=== PATIENT | male | born 1940 | race Caucasian/White ===

== ENCOUNTER 2018-04-21 11:36 | Inpatient (IN) | payer MEDICAID, OTHER ==
[2018-04-21] MEDS ORDERED: LR 1,000 ML IV ONE (12:24)
[2018-04-21] MEDS ORDERED: ceFAZolin 2 GM/DEXTROSE 100 ML IV ONE (12:24)
[2018-04-21] MEDS ORDERED: LIDOCAINE 1% 2 ML INJ ID PRN (12:24)
[2018-04-21] MEDS ORDERED: PHENYLEPHRINE HCL 100 MCG/ML SYR IVP PRN (13:53)
[2018-04-21] MEDS ORDERED: fentaNYL 100 MCG/2 ML INJ IVP PRN (13:53)
[2018-04-21] MEDS ORDERED: LR 500 ML IV PRN (13:53)
[2018-04-21] MEDS ORDERED: oxyCODONE IR 5 MG TAB PO PRN ×2 (13:53→16:56)
[2018-04-21] MEDS ORDERED: NALOXONE HCL 0.4 MG/ML INJ IVP PRN (13:53)
[2018-04-21] MEDS ORDERED: METOCLOPRAMIDE 10 MG/2 ML VIAL IVP PRN (13:53)
[2018-04-21] MEDS ORDERED: ONDANSETRON 4 MG/2 ML VIAL IVP PRN (13:53)
[2018-04-21] MEDS ORDERED: PROMETHAZINE HCL 25 MG/ML INJ IVP PRN (13:53)
[2018-04-21] MEDS ORDERED: MIDAZOLAM 2 MG/2 ML VIAL IVP ONE (13:56)
[2018-04-21] MEDS ORDERED: ONDANSETRON 4 MG/2 ML VIAL ONE (13:57)
[2018-04-21] MEDS ORDERED: DEXAMETHASONE 4 MG/ML VIAL ONE (13:57)
[2018-04-21] MEDS ORDERED: PROPOFOL 200 MG/20 ML VIAL ONE (13:57)
[2018-04-21] MEDS ORDERED: fentaNYL 100 MCG/2 ML INJ ONE (13:57)
[2018-04-21] MEDS ORDERED: ROPIVACAINE HCL 150 MG/30 ML INJ ONE (13:57)
[2018-04-21] MEDS ORDERED: LIDOCAINE 2% 5 ML SDV ONE ×2 (13:57→14:07)
[2018-04-21] MEDS ORDERED: NITROGLYCERIN 0.4 MG BTL SL PRN (15:14)
[2018-04-21] MEDS ORDERED: POLYETHYLENE GLYCOL 3350 17 GM PKT PO PRN (15:14)
--- NOTE | 2018-04-21 15:14 | PDGENHP ---
History & Physical Chief Complaint: r ankle fx History of Present Illness: now with displacement and pain of intra-articular R med malleolus fx Pertinent Past, Social, Family History: pace maker Relevant Physical Exam: R ankle ttp and swelling Cardiorespiratory Assessment: heart rrr. lungs clear. OR for ORIF R ankle
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
[2018-04-21] MEDS ORDERED: BUPIVACAINE 0.5% 30 ML SDV ONE (16:00)
[2018-04-21] MEDS ORDERED: PHENYLEPHRINE HCL 100 MCG/ML SYR ONE (16:15)
[2018-04-21] MEDS ORDERED: HYDROmorphONE/DILAUDID 1 MG/ML INJ IVP PRN (16:56)
--- NOTE | 2018-04-21 16:56 | POSTOPPROG ---
Post Op Note Date of Operation: 04/21/18 Surgeon: Hans Ardon Golf Ball Inspector: Bee Anesthesia: GET(General Endotracheal) Pre-op Diagnosis: R medial malleolus fx Post-op Diagnosis: same Indication: displaced fx Procedure: orif R medial mal fx Inf/Abcess present in the surg proc area at time of surgery?: No EBL: Minimal
--- NOTE | 2018-04-21 17:35 | POSTANESTH ---
Post Anesthetic Evaluation Cardiovascular Status: Normal, Stable Respiratory Status: Normal, Stable Level of Consciousness/Mental Status: Can Participate in Eval Pain Control: Adequate, Prn Tx Ordered Nausea/Vomiting Control: Adequate, Prn Tx Ordered Complications Possibly Related to Anesthesia: None Noted
[2018-04-21] MEDS: SUCRALFATE 1 GM TAB PO SCH ×2 (21:17→22:44)
[2018-04-21] MEDS: ceFAZolin 2 GM/DEXTROSE 100 ML IV SCH ×2 (22:19→23:54)
[2018-04-21] MEDS: CARVEDILOL 6.25 MG TAB PO SCH (22:43)
[2018-04-21] MEDS: PRAVASTATIN SODIUM 20 MG TAB PO SCH (22:44)
[2018-04-22] MEDS: ACETAMINOPHEN 325 MG TAB PO PRN ×2 (03:29→17:20)
[2018-04-22] MEDS: LEVOTHYROXINE 125 MCG TAB PO SCH (05:30)
--- NOTE | 2018-04-22 06:12 | GOP ---
DATE OF OPERATION: 04/21/2018 SURGEON: Hans Ardon MD UTILITY SPECIALIST: Aaron Gamboa SA. ANESTHESIA: General. PREOPERATIVE DIAGNOSIS: Right medial malleolus fracture. POSTOPERATIVE DIAGNOSIS: Right medial malleolus fracture. PROCEDURE PERFORMED: Open reduction/internal fixation, right medial malleolus fracture. FINDINGS: SPECIMENS: None. ESTIMATED BLOOD LOSS: 5 mL. INDICATIONS: This is a male who had a nondisplaced medial malleolus fracture, treated conservatively, came back to clinic in [place], [place], and had a displaced vertical shear fracture that was unstable involving the joint. I counseled him on the risks and benefits of operative intervention and he elected to proceed. Informed consent was obtained. All questions were answered. He was marked preoperatively. DESCRIPTION OF PROCEDURE: He was taken to the operative suite, sterilely prepped and draped in normal fashion. Time-out was performed, verifying the site, side, and location, and agreed on by members of the team. A tourniquet was inflated. Incision made over the medial malleolus. I dissected down through this, which was obviously mobile and unstable. I debrided the callus that had formed through the fracture site and was able to reduce this with a clamp using small incision laterally. I placed a plate over this and then placed a screw proximally to bring the plate to bone. I placed the plate across the fracture site at the line of the fracture site through the plate, another one through the plate as well as locking screw proximally and then a screw through the hole in the plate up the malleolus to stabilize this. This created a stable construct. His articular surface reduction looked good clinically and radiographically. I took final x-rays. He was irrigated and closed with 0 Vicryl, 2-0 Vicryl, and Dermabond, taken to PACU in stable condition. IMPLANT: Synthes medial malleolar hook plate, locking nonlocking screws, 3.5 and 4.0 cannulated screw. COMPLICATIONS: None. DRAINS: None. CONDITION: Stable. /[id number]/MODL MTDD
[2018-04-22] MEDS: FOLIC ACID 1 MG TAB PO SCH (08:45)
[2018-04-22] MEDS: ceFAZolin 2 GM/DEXTROSE 100 ML IV SCH (08:45)
[2018-04-22] MEDS: ENOXAPARIN 40 MG/0.4 ML SYR SC SCH (08:45)
[2018-04-22] MEDS: ASPIRIN 81 MG CHEWABLE TAB PO SCH (08:45)
[2018-04-22] MEDS: CARVEDILOL 6.25 MG TAB PO SCH ×2 (08:45→17:21)
[2018-04-22] MEDS: PANTOPRAZOLE SODIUM 40 MG TAB PO SCH (08:46)
[2018-04-22] MEDS: SPIRONOLACTONE 25 MG TAB PO SCH (08:46)
[2018-04-22] MEDS: FUROSEMIDE 20 MG TAB PO SCH (08:46)
[2018-04-22] MEDS: SUCRALFATE 1 GM TAB PO SCH ×4 (08:47→20:47)
[2018-04-22] MEDS ORDERED: Herbals/Supplements -Info Only PO SCH (09:00)
--- NOTE | 2018-04-22 09:11 | PDMN ---
Medical Necessity Medical necessity: MCG: S100 ankle fx ORIF : 77 yr old male with unstable, displaced fx with swelling, PMHx pacemaker, OP: ORIF R medial malleolus fx , INPT for further monitoring > 23 hours
--- NOTE | 2018-04-22 10:36 | SOAPPROG ---
SOAP Progress Note Assessment/Plan: Assessment: s/p orif R med mal fx 04/21 Plan: Right leg non wt bearing elevate ice keep dry stay in splint home when able to clear PT 04/22/18 10:34 Subjective: minimal pain Objective: Vital Signs Temp Pulse Resp BP Pulse Ox 36.6 C 89 16 138/77 H 95 04/22/18 07:55 04/22/18 07:55 04/22/18 07:55 04/22/18 07:55 04/22/18 07:55 Laboratory Results 04/21/18 13:54 04/21/18 04/22/18 04/23/18 05:59 05:59 05:59 Intake Total 1200 110 Output Total 660 Balance 540 110 elevate ICD10 Worksheet Patient Problems: Problems Problem Status Onset Ankle fracture, right Acute - ICD10 Problem Qualifiers (1) Ankle fracture, right Qualifiers: Encounter type: subsequent encounter Fracture type: closed
[2018-04-22] MEDS ORDERED: HYDROCODONE/APAP 5/325 TAB PO PRN (12:06)
--- NOTE | 2018-04-22 18:04 | ASMTCMCOM ---
CM Note CM Note Notes: Pt lives with in [place], [place]. The closest cities are [place] and [place]. Pt admitted for right ankle fracture and necessary surgery. Therapies now recommending SNF short term rehab. Earliest discharge could be Tuesday. Referrals sent to various facilities in [facility] and [place]. Pt and not aware of any facilities they prefer, simply that they be closer to their home. [facility] [place] has accepted. Several of the other facilities do not have intake available until Tuesday. There is a [facility] in [place] that does have "swing" bed available for rehab patients, however CM at this facility will not be in until Tuesday. Referral sent to her via [employer]. CM to follow. D/C Plan: SNF close to [place], [place] Date Signed: 04/22/2018 06:04 PM Electronically Signed By:Lolita López
[2018-04-22] MEDS: PRAVASTATIN SODIUM 20 MG TAB PO SCH (20:47)
[2018-04-23] MEDS: LEVOTHYROXINE 125 MCG TAB PO SCH (05:35)
--- NOTE | 2018-04-23 08:17 | SOAPPROG ---
SONEELA Progress Note Assessment/Plan: Assessment: s/p orif R med mal fx 04/21 Plan: Right leg non wt bearing elevate ice keep dry stay in splint Will need SNF placement as unable to use walker Case management looking at facilities close to [place]. 04/22/18 10:34 04/23/18 08:15 Subjective: no pain Objective: Vital Signs Temp Pulse Resp BP Pulse Ox 36.6 C 84 17 165/103 H 93 04/23/18 07:50 04/23/18 07:50 04/23/18 07:50 04/23/18 07:50 04/23/18 07:50 Laboratory Results 04/21/18 13:54 04/22/18 04/23/18 04/24/18 05:59 05:59 05:59 Intake Total 1200 1660 250 Output Total 660 1975 350 Balance 540 -315 -100 splint cdi ICD10 Worksheet Patient Problems: Problems Problem Status Onset Ankle fracture, right Acute - ICD10 Problem Qualifiers (1) Ankle fracture, right Qualifiers: Encounter type: subsequent encounter Fracture type: closed
[2018-04-23] MEDS: FOLIC ACID 1 MG TAB PO SCH (08:31)
[2018-04-23] MEDS: SPIRONOLACTONE 25 MG TAB PO SCH (08:31)
[2018-04-23] MEDS: CARVEDILOL 6.25 MG TAB PO SCH ×2 (08:31→18:33)
[2018-04-23] MEDS: ENOXAPARIN 40 MG/0.4 ML SYR SC SCH (08:31)
[2018-04-23] MEDS: ASPIRIN 81 MG CHEWABLE TAB PO SCH (08:31)
[2018-04-23] MEDS: PANTOPRAZOLE SODIUM 40 MG TAB PO SCH (08:31)
[2018-04-23] MEDS: FUROSEMIDE 20 MG TAB PO SCH (08:32)
[2018-04-23] MEDS: SUCRALFATE 1 GM TAB PO SCH ×4 (08:32→21:36)
[2018-04-23] MEDS: PRAVASTATIN SODIUM 20 MG TAB PO SCH (21:36)
[2018-04-23] MEDS: ACETAMINOPHEN 325 MG TAB PO PRN (21:36)
[2018-04-24] MEDS: LEVOTHYROXINE 125 MCG TAB PO SCH (06:34)
[2018-04-24] MEDS: SUCRALFATE 1 GM TAB PO SCH ×2 (06:34→11:24)
[2018-04-24] MEDS: ACETAMINOPHEN 325 MG TAB PO PRN ×2 (06:34→15:45)
[2018-04-24 07:34] VITALS: BP 153/84
--- NOTE | 2018-04-24 07:52 | SOAPPROG ---
SONEELA Progress Note Assessment/Plan: Assessment: s/p orif R med mal fx 04/21 Plan: Right leg non wt bearing elevate ice keep dry stay in splint Will need SNF placement as unable to use walker other than for short distances Case management looking at facilities close to [place]. 04/22/18 10:34 04/23/18 08:15 04/24/18 07:51 Subjective: no pain Objective: Vital Signs Temp Pulse Resp BP Pulse Ox 36.3 C 81 14 153/84 H 93 04/24/18 07:33 04/24/18 07:33 04/24/18 07:33 04/24/18 07:33 04/24/18 07:33 Laboratory Results 04/21/18 13:54 04/23/18 04/24/18 04/25/18 05:59 05:59 05:59 Intake Total 1660 1600 Output Total 1975 950 Balance -315 650 splint cdi ICD10 Worksheet Patient Problems: Problems Problem Status Onset Ankle fracture, right Acute - ICD10 Problem Qualifiers (1) Ankle fracture, right Qualifiers: Encounter type: subsequent encounter Fracture type: closed
--- NOTE | 2018-04-24 07:54 | PDIAF ---
- Diagnosis Code Status: Full Code - Medication Management Discharge Medications: electronically signed and located in the Home Medication List. - Orders Services needed: Registered Nurse, Certified Parachute Repairer, Physical Therapy, Occupational Therapy Diet Recommendation: no restrictions on diet Diet Texture: Regular Texture Diet Activity/Weight Bearing Restrictions: non wt bearing R leg Additional Instructions: Right leg non wt bearing elevate ice keep dry stay in splint follow up in 1 week in [place] with Scottie Joshua for splint removal and cast placement - Follow Up Care Current Providers and Referrals: Hans Ardon MD [Medical Doctor] - 05/23/18 SUMIT MICHELLE [Primary Care Provider] -
[2018-04-24] MEDS: SPIRONOLACTONE 25 MG TAB PO SCH (08:09)
[2018-04-24] MEDS: CARVEDILOL 6.25 MG TAB PO SCH (08:10)
[2018-04-24] MEDS: FUROSEMIDE 20 MG TAB PO SCH (08:10)
[2018-04-24] MEDS: ASPIRIN 81 MG CHEWABLE TAB PO SCH (08:10)
[2018-04-24] MEDS: FOLIC ACID 1 MG TAB PO SCH (08:10)
[2018-04-24] MEDS: PANTOPRAZOLE SODIUM 40 MG TAB PO SCH (08:10)
[2018-04-24] MEDS: ENOXAPARIN 40 MG/0.4 ML SYR SC SCH (08:11)
--- NOTE | 2018-04-24 14:22 | ASMTCMCOM ---
CM Note CM Note Notes: This CM left a message for Sheila MISTRY at the [facility] Swing bed [phone]; . They are not on [employer], info will need to be faxed. Date Signed: 04/23/2018 03:45 PM Electronically Signed By:Esha Dean LCSW
--- NOTE | 2018-04-24 14:22 | ASMTCMCOM ---
CM Note CM Note Notes: [facility] [place] called back to say that they would be unable to transport patient to f/u appts. Spoke to patient and his . They felt that he was doing well up on the walker and was able to go to the bathroom w/o bearing wt on his ankle. They wonder about Home Care vs the [facility] Swing bed? They will check with therapist on Tuesday. Date Signed: 04/23/2018 03:25 PM Electronically Signed By:Esha Dean LCSW
--- NOTE | 2018-04-24 14:50 | ASMTLACE ---
LACE Length of stay for Answers: 3 days current admission Acuity / Level of Answers: Yes Care: Did the patient have an inpatient admission? Comorbidities - select Answers: Congestive heart failure all that apply Opioid dependence / Chronic pain Other Notes: HTN; Hypothyroid # of Emergency department Answers: 0 visits in the last 6 months Score: 13 Date Signed: 04/24/2018 02:48 PM Electronically Signed By:SILVANO Wright
--- NOTE | 2018-04-24 14:55 | ASMTDCNOTE ---
Case Management Discharge Discharge Order Complete? Answers: Yes Patient to Obtain Answers: Other Notes: Transportation arranged Medications via [facility] Transportation Arranged Answers: Other Faxed Final Orders Answers: Yes Agency/Facility Transfer Answers: Yes Report Printed & Faxed to Receiving Agency Family Notified Answers: Yes Discharge Comments Notes: CM met with pt and pt's . Pt agreeable to going to [facility] in [place]. SNF provided transportation, pt be picked up at 3:45pm today. CM answered questions and concerns. Pt and family agreeable with discharge plan. no other CM needs identified. Date Signed: 04/24/2018 02:53 PM Electronically Signed By:SILVANO Wright
--- NOTE | 2018-04-24 15:01 | ASDISCHSUM ---
Discharge Information Plan Status:SNF Medically Cleared to Leave:04/23/2018 Discharge Date:04/23/2018 CM D/C Disposition:[facility] Facility ADT D/C Disposition:[facility] Facility Projected Discharge Date:04/24/2018 11:00 AM Transportation at D/C:Wheelchair Van Discharge Delay Reason: Follow-Up Date:04/24/2018 11:00 AM Discharge Slot: Final Diagnosis: Placement Information Referral Type:*Retirement/SNF Referral ID:[id number] Provider Name:Francois Vila/[facility] Address 1:[address] Address 2: City:[place] Selection Factors: State:[place] Patient Contact Information Contact Name:ITALIA Relationship: Address:[address] Work Phone: Ronald:JOYCE Del [place] Phone: State/Zip Code:[place] [address] Email: Financial Information Financial Class:Medicare Primary Plan Desc:MEDICARE INPATIENT Primary Plan Number:[id number] Secondary Plan Desc: Secondary Plan Number: Assessment Information [facility] CM Progress Note CM Note CM Note Notes: Pt lives with in [place], [place]. The closest cities are [place] and [place]. Pt admitted for right ankle fracture and necessary surgery. Therapies now recommending SNF short term rehab. Earliest discharge could be Tuesday. Referrals sent to various facilities in [facility] and [place]. Pt and not aware of any facilities they prefer, simply that they be closer to their home. [facility] in [place] has accepted. Several of the other facilities do not have intake available until Tuesday. There is a [facility] in [place] that does have "swing" bed available for rehab patients, however CM at this facility will not be in until Tuesday. Referral sent to her via [employer]. CM to follow. D/C Plan: SNF close to [place], [place] Date Signed: 04/22/2018 06:04 PM Electronically Signed By:Lolita López [facility] CM Progress Note CM Note CM Note Notes: [facility] [place] called back to say that they would be unable to transport patient to f/u appts. Spoke to patient and his . They felt that he was doing well up on the walker and was able to go to the bathroom w/o bearing wt on his ankle. They wonder about Home Care vs the [facility] Swing bed? They will check with therapist on Tuesday. Date Signed: 04/23/2018 03:25 PM Electronically Signed By:Esha Dean LCSW [facility] CM Progress Note CM Note CM Note Notes: This CM left a message for Sheila MISTRY at the [facility] Swing bed [phone]; . They are not on [employer], info will need to be faxed. Date Signed: 04/23/2018 03:45 PM Electronically Signed By:Esha Dean LCSW LACE LACE Length of stay for Answers: 3 days current admission Acuity / Level of Answers: Yes Care: Did the patient have an inpatient admission? Comorbidities - select Answers: Congestive heart failure all that apply Opioid dependence / Chronic pain Other Notes: HTN; Hypothyroid # of Emergency department Answers: 0 visits in the last 6 months Score: 13 Date Signed: 04/24/2018 02:48 PM Electronically Signed By:SILVANO Wright Case Management Discharge Plan Note Case Management Discharge Discharge Order Complete? Answers: Yes Patient to Obtain Answers: Other Notes: Transportation arranged Medications via [facility] Transportation Arranged Answers: Other Faxed Final Orders Answers: Yes Agency/Facility Transfer Answers: Yes Report Printed & Faxed to Receiving Agency Family Notified Answers: Yes Discharge Comments Notes: CM met with pt and pt's . Pt [facility]able to [facility] [place]. SNF provided transportation, pt be picked up at 3:45pm today. CM answered questions and concerns. Pt and family agreeable with discharge plan. no other CM needs identified. Date Signed: 04/24/2018 02:53 PM Electronically Signed By:SILVANO Wright Intervention Information
--- NOTE | 2018-04-24 22:23 | GDS ---
HOSPITALIZATIONS: He was admitted to hospital after ORIF of a right medial malleolus fracture. He h ad difficulty mobilizing with physical therapy and was ultimately unable to clear physical therapy in terms of stairs and being safe for home. He met criteria for discharge to SNF. He was doing well w ith his pain control. CONDITION ON DISCHARGE: Stable. OPERATIONS: Right ankle ORIF. CONSULTING PHYSICIANS: None. DISPOSITION: He was sent home on a regular diet. He was sent home with previous medications as well as [place] for pain management. He is told to ice and elevate. He is in a splint. He is nonweightbe aring. Splint will be removed in 1 week. He will be placed in a cast. He will likely transition fr om the splint back to [place], [place] where he lives, and I will see him there in followup in 3 weeks. /[id number]/MODL
== END 2018-04-24 16:22 | DRG 493 ==
LOC: FSGY 11:36 → F3E 16:56 → F3N 20:57
PROVIDERS: ADMIT Orthopaedic Surgery; ATTEND Orthopaedic Surgery
PROC: 0QSG04Z Reposition Right Tibia with Internal Fixation Device, Open Approach (ICD-10-PCS; principal; 2018-04-21 14:45)
DX: S82.51XA Displaced fracture of medial malleolus of right tibia, initial encounter for closed fracture (principal); X58.XXXA Exposure to other specified factors, initial encounter; I10 Essential (primary) hypertension; I42.0 Dilated cardiomyopathy; Z95.810 Presence of automatic (implantable) cardiac defibrillator; I34.1 Nonrheumatic mitral (valve) prolapse; E78.00 Pure hypercholesterolemia, unspecified; E03.9 Hypothyroidism, unspecified; Z96.653 Presence of artificial knee joint, bilateral
CPT/HCPCS: 97116-GP; 97161-GP; 97165-GO; 97530-GP; 97535-GO; C1713; C1769; G8978-GP-CL; G8979-GP-CJ; G8987-GO-CK; G8987-GO-CL; G8988-GO-CI; J0690; J1100; J1170; J1650; J2250; J2370; J2405; J2704; J2795; J3010